=== PATIENT | male | born 1945 | race Caucasian/White ===

== ENCOUNTER 2017-10-03 06:56 | Day surgery (SDC) | payer MEDICARE, BC ==
[2017-10-03] MEDS ORDERED: PROPOFOL 40 ML (09:12)
[2017-10-03] MEDS ORDERED: LIDOCAINE 2% (SDV) 5 ML INJ (09:12)
== END 2017-10-03 11:16 | disposition home or self-care (01) ==
LOC: GIL 06:56
DX: R19.4 Change in bowel habit (principal); D12.5 Benign neoplasm of sigmoid colon; K64.8 Other hemorrhoids; I10 Essential (primary) hypertension; E11.9 Type 2 diabetes mellitus without complications; E78.5 Hyperlipidemia, unspecified
CPT/HCPCS: 45380; 88305